=== PATIENT | female | born 1950 | race Caucasian/White ===

== ENCOUNTER 2024-02-12 19:52 | Emergency (ER) | payer BC, OTHER ==
[~2024-02-12] VITALS: Ht 152.4 cm; Wt 47.0 kg
[~2024-02-12 19:52] MED LIST: ATEN1TAB38; GLUC-244; LISI-275; SITA100T7
[2024-02-13] MEDS ORDERED: methylPREDNISolone SOD SUCC 125 MG/2 ML VL ONE (00:01)
[2024-02-13 00:04] VITALS: BP 181/73
[2024-02-13] MEDS: methylPREDNISolone SOD SUCC 125 MG/2 ML VL IM ONE (00:09)
[2024-02-13 00:12] VITALS: PULSE 105
[2024-02-13 00:24] LABS: Basophils # (auto) 0.1 10 ^3/uL (0-0.2); Eosinophils # (auto) 0.3 10 ^3/uL (0-0.8); Eosinophils % (auto) 4.9 % (0.0-7.0); Hematocrit 44.4 % (36.0-46.0); Hemoglobin 14.7 g/dL (12.2-16.2); Lymphocytes % (auto) 14.6 % (10.0-50.0); Mean Corpuscular Hemoglobin 29.2 pg (28.0-32.0); Mean Corpuscular Hgb Conc. 33.1 g/dL (32.0-36.0); Mean Corpuscular Volume 88.4 fL (80.0-100.0); Monocytes % (auto) 14.6 % (0.0-12.0); Neutrophils # (auto) 4.4 10 ^3/uL (1.6-8.6); Neutrophils % (auto) 64.9 % (37.0-80.0); Red Blood Cells 5.02 10^6/uL (4.0-5.20); Red Cell Distribution Width 12.8 % (11.8-14.3); White Blood Cell 6.7 10^3/uL (4.4-10.8)
[2024-02-13 00:33] LABS: Anion Gap 6 (5-15); Carbon Dioxide 27 mmol/L (20-30); Chloride 101 mmol/L (98-107); Potassium 4.6 mmol/L (3.5-5.1); Sodium 134 mmol/L (136-145)
[2024-02-13 00:34] LABS: Calcium 10.2 mg/dL (8.7-10.4)
[2024-02-13 00:39] LABS: BUN/Creatinine Ratio 16.4 (10.0-20.0); Blood Urea Nitrogen 12 mg/dL (9-23); Glucose 177 mg/dL (74-106)
[2024-02-13] MEDS ORDERED: ALBUTEROL SULF 2.5 MG/0.5ML(0.5%) NEB SOLN ONE (01:35)
[2024-02-13] MEDS ORDERED: IPRATROPIUM BROM 0.5 MG/2.5ML INH SOL ONE (01:35)
[2024-02-13] MEDS: ALBUTEROL SULF 2.5 MG/0.5ML(0.5%) NEB SOLN NEB ONE (01:44)
[2024-02-13] MEDS: IPRATROPIUM BROM 0.5 MG/2.5ML INH SOL NEB ONE (01:44)
[2024-02-13] MEDS ORDERED: PRED10TA PO (03:25)
[2024-02-13] MEDS ORDERED: AMOX875T4 PO (03:25)
[2024-02-13] MEDS ORDERED: ALBUAER3 IN (03:25)
[2024-02-13 03:30] VITALS: RESP 20; O2SAT 92
== END 2024-02-13 03:36 | disposition home or self-care (01) ==
LOC: EDBD 19:52 → EDUNIT# 19:52 → ER 19:52
DX: J06.9 Acute upper respiratory infection, unspecified (principal); J44.9 Chronic obstructive pulmonary disease, unspecified; I10 Essential (primary) hypertension; E11.9 Type 2 diabetes mellitus without complications; Z85.9 Personal history of malignant neoplasm, unspecified; Z98.890 Other specified postprocedural states; Z87.891 Personal history of nicotine dependence
CPT/HCPCS: 36415; 71046; 80048; 84484; 85025; 93005; 94640; 96372; 99285; J2930; J7644